=== PATIENT | male | born 1955 | race Asian ===

== ENCOUNTER 2022-03-17 10:27 | Emergency (ER) | payer OTHER ==
[2022-03-17 10:36] VITALS: BMI 18.8
[2022-03-17] MEDS ORDERED: ASPIRIN 325 MG TABLET PO ONE (10:46)
[2022-03-17] MEDS ORDERED: HEPARIN NA (PORCINE) 5,000 UNITS/ML 1ML VIAL IVPUSH ONE (10:48)
[2022-03-17] MEDS ORDERED: HEPARIN NA (PORCINE) 5,000 UNITS/ML 1ML VIAL ONE (10:53)
[2022-03-17] MEDS ORDERED: ASPIRIN 325 MG TABLET ONE (10:53)
[2022-03-17 11:13] LABS: BASO % 0.3 % (0-2.0); EOS % 1.3 % (0-4.5); HEMATOCRIT 44.4 % (35.4-49); HEMOGLOBIN 15.3 GM/dL (11.7-16.9); LYMPH % 27.4 % (8-40); MCH 31.1 pg (25.7-33.7); MCHC 34.4 g/dl (32.0-35.9); MEAN CELL VOLUME 90.3 fl (80-96); MEAN PLT VOLUME 7.8 fl (7.5-11.1); MONO % 8.8 % (3.8-10.2); NEUT % 62.2 % (42.8-82.8); PLATELET COUNT 172 10^3/uL (134-434); RBC 4.92 M/mm3 (4.00-5.60); RDW 13.2 % (11.9-15.9); WHITE BLOOD COUNT 6.3 K/mm3 (4.0-10.0)
[2022-03-17 11:17] LABS: INR 0.98 (0.83-1.09); PROTHROMBIN TIME (PATIENT) 11.3 SEC (9.7-13.0)
[2022-03-17] MEDS ORDERED: HEPARIN NA (PORCINE) 5,000 UNITS/ML 1ML VIAL IVPUSH PRN ×2 (11:17)
[2022-03-17] MEDS ORDERED: ATORVASTATIN CA 80 MG TABLET (FP) PO ONE (11:17)
[2022-03-17] MEDS ORDERED: CLOPIDOGREL BISULFATE 300 MG TABLET PO ONE (11:19)
[2022-03-17 11:20] LABS: ACTIVATED PTT 33.1 SECONDS (25.2-36.5)
[2022-03-17] MEDS ORDERED: CLOPIDOGREL BISULFATE 300 MG TABLET ONE (11:24)
[2022-03-17] MEDS ORDERED: ATORVASTATIN CA 80 MG TABLET (FP) ONE (11:25)
[2022-03-17] MEDS ORDERED: HEPARIN INFUSION - 25,000 UNITS/500 ML INFUS.BAG IVPB ONE (11:25)
[2022-03-17 11:34] LABS: CHLORIDE 101 mmol/L (98-107); SODIUM 139 mmol/L (136-145)
[2022-03-17 11:36] LABS: ANION GAP 8 MMOL/L (8-16); BLOOD UREA NITROGEN 25.9 mg/dL (7-18); CALCIUM 9.9 mg/dL (8.5-10.1); CO2 30 mmol/L (21-32); GLUCOSE,RANDOM 303 mg/dL (74-106); MAGNESIUM 2.4 mg/dL (1.8-2.4)
[2022-03-17 11:39] LABS: CREATININE 0.8 mg/dL (0.55-1.3); SGOT/AST 30 U/L (15-37); SGPT/ALT 36 U/L (13-61)
[2022-03-17 11:41] LABS: BILIRUBIN,TOTAL 0.6 mg/dL (0.2-1); TOT PROT 7.6 g/dl (6.4-8.2)
[2022-03-17 11:42] LABS: ALK PHOS 84 U/L (45-117)
[2022-03-17] MEDS ORDERED: HEPARIN - 25,000 UNIT in SODIUM CHLORIDE 495 ML IV SCH (11:45)
[2022-03-17 11:59] VITALS: BP 126/70; PULSE 70; RESP 14; TEMP 98.6
== END 2022-03-17 12:19 | disposition short-term general hospital (02) ==
LOC: JER 10:27
PROC: 3E033GC Introduction of Other Therapeutic Substance into Peripheral Vein, Percutaneous Approach (ICD-10-PCS; principal; 2022-03-17)
PROC: 3E033GC Introduction of Other Therapeutic Substance into Peripheral Vein, Percutaneous Approach (ICD-10-PCS; 2022-03-17)
PROC: 3E033GC Introduction of Other Therapeutic Substance into Peripheral Vein, Percutaneous Approach (ICD-10-PCS; 2022-03-17)
DX: I21.3 ST elevation (STEMI) myocardial infarction of unspecified site (principal)
CPT/HCPCS: 36415; 80053; 82550; 82962; 83735; 84484; 85025; 85610; 85730; 93005; 93010; 99285-25; C9803-CS; J1644; U0003; U0005